=== PATIENT | female | born 2000 | race Caucasian/White ===

== ENCOUNTER 2022-02-28 11:32 | Emergency (ER) | payer OTHER ==
[~2022-02-28] VITALS: Ht 165.1 cm; Wt 86.8 kg
[2022-02-28] MEDS ORDERED: CETI10CA13 PO (12:53)
[2022-02-28] MEDS ORDERED: CETIRIZINE (ZyrTEC) 10 MG TAB PO ONE (13:00)
[2022-02-28 13:10] VITALS: BP 127/73
[2022-03-01] MEDS ORDERED: HYDR1CRE30 TOP (15:56)
== END 2022-02-28 13:12 | disposition home or self-care (01) ==
LOC: M ED 11:32
DX: L50.9 Urticaria, unspecified (principal); Z3A.32 32 weeks gestation of pregnancy; Z88.0 Allergy status to penicillin

== ENCOUNTER 2022-03-01 14:26 | Emergency (ER) | payer OTHER ==
[~2022-03-01] VITALS: Ht 165.1 cm; Wt 86.2 kg
[~2022-03-01 14:26] MED LIST: CETI10CA13 PO
[2022-03-01] MEDS ORDERED: diphenhydrAMINE 50MG/ML VIAL (J1200) IM STA (15:45)
[2022-03-01] MEDS ORDERED: HYDROCORTISONE 1% CREAM 30 GM TOP ONE (15:55)
[2022-03-01] MEDS ORDERED: HYDR1CRE30 TOP (15:56)
[2022-03-01 16:30] VITALS: BP 112/70
== END 2022-03-01 16:53 | disposition home or self-care (01) ==
LOC: M ED 14:26
DX: O99.713 Diseases of the skin and subcutaneous tissue complicating pregnancy, third trimester (principal); R21 Rash and other nonspecific skin eruption; Z3A.32 32 weeks gestation of pregnancy; Z88.0 Allergy status to penicillin
CPT/HCPCS: 96372; 99283; J1200

== ENCOUNTER 2022-04-18 16:12 | Outpatient (CLI) | payer OTHER ==
[~2022-04-18] VITALS: Ht 165.1 cm; Wt 91.9 kg
[~2022-04-18 16:12] MED LIST changes: +HYDR1CRE30 TOP
[2022-04-18 16:32] VITALS: BP 125/76
[2022-04-18] MEDS ORDERED: IRON27TA2 PO (16:36)
[2022-04-18] MEDS ORDERED: MULTTAB20 PO (16:36)
== END 2022-04-18 18:20 | disposition home or self-care (01) ==
LOC: M LDO 16:12
PROVIDERS: ATTEND Obstetrics & Gynecology
DX: O26.893 Other specified pregnancy related conditions, third trimester (principal); N89.8 Other specified noninflammatory disorders of vagina; Z3A.39 39 weeks gestation of pregnancy; O99.013 Anemia complicating pregnancy, third trimester; Z88.0 Allergy status to penicillin
CPT/HCPCS: 59025; G0463

== ENCOUNTER 2022-04-19 11:20 | Inpatient (IN) | payer OTHER ==
[~2022-04-19] VITALS: Ht 165.1 cm; Wt 92.0 kg
[2022-04-19] VITALS (30 sets, daily range): BP systolic 112–166; BP diastolic 60–94
[~2022-04-19 11:20] MED LIST changes: +IRON27TA2 PO; +MULTTAB20 PO
[2022-04-19] MEDS ORDERED: HOME MED LIST COMPLETE! XX SCH (11:50)
[2022-04-19] MEDS ORDERED: LR 1,000 ML IV SCH ×2 (14:25→23:45)
[2022-04-19] MEDS ORDERED: OXYTOCIN INJ 10 UNITS/ML VIAL (J2590) IV PRN (14:25)
[2022-04-19] MEDS ORDERED: METHYLERGONOVINE MALEATE 0.2 MG/ML VIAL (J2210) IM PRN ×2 (14:25→23:45)
[2022-04-19] MEDS ORDERED: OXYTOCIN DRIP 30 UNITS in IV 1 EA IV PRN ×4 (14:25)
[2022-04-19] MEDS ORDERED: LACTATED RINGER'S 1000 ML IV ONE (14:25)
[2022-04-19] MEDS ORDERED: TRANEXAMIC ACID INJection 1,000 MG in NS 100 ML IV PRN (14:25)
[2022-04-19 14:48] LABS: HEMATOCRIT 34.3 % (36.0-47.0); HEMOGLOBIN 10.8 g/dl (12.0-15.5); MEAN CORPUSCULAR HEMOGLOBIN 25.1 pg (27.0-33.0); MEAN CORPUSCULAR HGB CONC 31.5 g/dl (32.0-36.5); MEAN CORPUSCULAR VOLUME 79.6 fl (80.0-96.0); PLATELET COUNT, AUTOMATED 274 10^3/uL (150-450); RED BLOOD COUNT 4.31 10^6/uL (4.00-5.40); WHITE BLOOD COUNT 7.5 10^3/uL (4.0-10.0)
[2022-04-19] MEDS ORDERED: FENTANYL 2MCG/ML ROPIVACAINE 0.2% IN 0.9% NACL 100ML IVBAG As Ordered ONE (15:18)
[2022-04-19] MEDS ORDERED: EPIDURAL/PCA KEYS XX PRN (15:20)
[2022-04-19] MEDS ORDERED: diphenhydrAMINE 50MG/ML VIAL (J1200) IV PRN (15:20)
[2022-04-19] MEDS ORDERED: NALOXONE INJ 0.4MG/1ML VIAL (J2310 PER 1MG) IV PRN (15:20)
[2022-04-19] MEDS ORDERED: LR 500 ML IV PRN (15:20)
[2022-04-19] MEDS ORDERED: FENTANYL/ROPIVACAINE/NACL BAG 100 ML EPIDURAL SCH (15:20)
[2022-04-19] MEDS ORDERED: ONDANSETRON 4MG 2ML VIAL IV PRN (15:20)
[2022-04-19] MEDS ORDERED: ePHEDrine SULFATE 25 MG/5 ML(5MG/ML) SYRINGE IVP PRN (15:20)
[2022-04-19] MEDS ORDERED: OXYTOCIN DRIP 30 UNITS in IV 1 EA IV SCH ×2 (17:30→23:45)
[2022-04-19 23:24] LABS: CORD GAS ABE A -4.5; CORD GAS ABE V -5.3; CORD GAS HCO3 A 21.8 MEQ/L; CORD GAS HCO3 V 17.9 MEQ/L; CORD GAS O2 SAT A 34.6 %; CORD GAS O2 SAT V 68.6 %; CORD GAS PCO2 A 44.8 mmHg; CORD GAS PCO2 V 29.5 mmHg; CORD GAS PH A 7.306 UNITS; CORD GAS PH V 7.402 UNITS; CORD GAS PO2 A 17.7 mmHg; CORD GAS PO2 V 27.7 mmHg; CORD GAS SBC A 19.3 MEQ/L; CORD GAS SBC V 19.5 MEQ/L; CORD GAS TCO2 A 23.2 MEQ/L; CORD GAS TCO2 V 18.9 MEQ/L
[2022-04-19] MEDS ORDERED: METHYLERGONOVINE MALEATE 0.2 MG TAB PO PRN (23:45)
[2022-04-19] MEDS ORDERED: DOCUSATE SODIUM 100MG CAPSULE PO PRN (23:45)
[2022-04-19] MEDS ORDERED: OXYTOCIN INJ 10 UNITS/ML VIAL (J2590) IV ONE (23:45)
[2022-04-19] MEDS ORDERED: MOM 30ML SUSPENSION UDC PO PRN (23:45)
[2022-04-19] MEDS ORDERED: ACETAMINOPHEN TAB 650MG DOSE (2X325MG) PO PRN (23:45)
[2022-04-19] MEDS ORDERED: DIBUCAINE 1% OINTMENT 30GM TOP PRN (23:45)
[2022-04-19] MEDS ORDERED: RHOGAM 300 MCG (1500 IU) INJ (J2790) IM SCH (23:45)
[2022-04-19] MEDS ORDERED: OXYTOCIN DRIP 30 UNITS in IV 1 EA IV ONE (23:45)
[2022-04-19] MEDS ORDERED: TRANEXAMIC ACID INJection 1,000 MG in NS 100 ML IV ONE (23:45)
[2022-04-19] MEDS ORDERED: ANUSOL HC CREAM 30GM TOP PRN (23:45)
[2022-04-20 00:09] VITALS: BP 135/68
[2022-04-20 00:24] VITALS: BP 144/71
[2022-04-20 00:39] VITALS: BP 134/69
[2022-04-20 01:20] VITALS: BP 138/77
[2022-04-20] MEDS: IBUPROFEN 600MG TAB PO PRN ×3 (02:00→17:57)
[2022-04-20] MEDS: ACETAMINOPHEN 500 MG TAB PO PRN (05:22)
[2022-04-20 06:00] VITALS: BP 123/68
[2022-04-20] MEDS: PRENATAL VITAMINS CHEWABLE TABLET PO SCH (08:14)
[2022-04-20 08:48] LABS: HEMATOCRIT 28.7 % (36.0-47.0); MEAN CORPUSCULAR HEMOGLOBIN 24.4 pg (27.0-33.0); MEAN CORPUSCULAR HGB CONC 30.3 g/dl (32.0-36.5); MEAN CORPUSCULAR VOLUME 80.6 fl (80.0-96.0); PLATELET COUNT, AUTOMATED 220 10^3/uL (150-450); RED BLOOD COUNT 3.56 10^6/uL (4.00-5.40); WHITE BLOOD COUNT 11.6 10^3/uL (4.0-10.0)
[2022-04-20 08:51] LABS: HEMOGLOBIN 8.7 g/dl (12.0-15.5)
[2022-04-20 18:00] VITALS: BP 127/70
[2022-04-21 06:00] VITALS: BP 107/57
[2022-04-21] MEDS ORDERED: IBUP-1022 PO (07:13)
[2022-04-21] MEDS ORDERED: ACET1TAB55 PO (07:13)
[2022-04-21] MEDS: IBUPROFEN 600MG TAB PO PRN (07:18)
[2022-04-21] MEDS: ACETAMINOPHEN 500 MG TAB PO PRN (08:00)
[2022-04-21] MEDS: PRENATAL VITAMINS CHEWABLE TABLET PO SCH (08:00)
[2022-04-21] MEDS ORDERED: MEASLES,MUMPS,RUBELLA VACCINE INJ (MMR-II) (90707) SC.IMMUN ONE (09:00)
== END 2022-04-21 13:25 | disposition home or self-care (01) | DRG 807 ==
LOC: M LDO 11:20 → M LDI 14:13 → M OBS 04-20 01:15
PROVIDERS: ADMIT Obstetrics & Gynecology; ATTEND Obstetrics & Gynecology
PROC: 10E0XZZ Delivery of Products of Conception, External Approach (ICD-10-PCS; principal; 2022-04-19)
PROC: 10907ZC Drainage of Amniotic Fluid, Therapeutic from Products of Conception, Via Natural or Artificial Opening (ICD-10-PCS; 2022-04-19)
PROC: 0HQ9XZZ Repair Perineum Skin, External Approach (ICD-10-PCS; 2022-04-19)
DX: O70.0 First degree perineal laceration during delivery (principal); Z37.0 Single live birth; Z3A.39 39 weeks gestation of pregnancy; O77.0 Labor and delivery complicated by meconium in amniotic fluid

== ENCOUNTER 2022-08-26 23:59 | Emergency (ER) | payer OTHER ==
[~2022-08-26] VITALS: Ht 165.1 cm; Wt 82.1 kg
[~2022-08-26 23:59] MED LIST changes: +ACET1TAB55 PO; +IBUP-1022 PO
[2022-08-27] VITALS: BP 121/66
== END 2022-08-27 03:48 | disposition left against medical advice (07) ==
LOC: M ED 23:59
DX: Z53.21 Procedure and treatment not carried out due to patient leaving prior to being seen by health care provider (principal)